=== PATIENT | female | born 1950 | race Caucasian/White ===

== ENCOUNTER 2020-04-21 08:22 | Emergency (ER) | payer MEDICARE ==
[~2020-04-21] VITALS: Ht 167.6 cm; Wt 142.3 kg
--- NOTE | 2020-04-21 08:50 | PHYS DOC ---
General Adult EDM: Chief Complaint: LACERATION/AVULSION HPI: HPI: 69-year-old female presents with a left great toe laceration. The patient caught her toe between the door and the door frame. She has a large curved tear in the great toe skin just proximal to the nail. The patient is on a blood thinner. It was bleeding quite a bit at home so she wrapped up and came to the emergency room. Patient has significantly decreased feeling in her lower extremity at baseline. She is not complaining of pain. She assumes it needs stitches and is not sure if it is broken. Review of Systems: Review of Systems: Constitutional: Denies fever or chills Eyes: Denies change in visual acuity HENT: Denies nasal congestion or sore throat Respiratory: Denies cough or shortness of breath Cardiovascular: Denies chest pain or edema GI: Denies abdominal pain, nausea, vomiting, bloody stools or diarrhea : Denies dysuria Musculoskeletal: Left great toe deformity, laceration Integument: Denies rash Neurologic: Denies headache, focal weakness or sensory changes Endocrine: Denies polyuria or polydipsia Lymphatic: Denies swollen glands Psychiatric: Denies depression or anxiety Heart Score: Risk Factors: Risk Factors: DM, Current or recent (<one month) smoker, HTN, HLP, family history of CAD, obesity. Risk Scores: Score 0 - 3: 2.5% MACE over next 6 weeks - Discharge Home Score 4 - 6: 20.3% MACE over next 6 weeks - Admit for Clinical Observation Score 7 - 10: 72.7% MACE over next 6 weeks - Early Invasive Strategies Allergies: Allergies: Allergies Coded Allergies Type Severity Reaction Last Updated Verified No Known Drug Allergies 09/08/15 No Physical Exam: PE: Constitutional: Well developed, well nourished, no acute distress, non-toxic appearance. [] HENT: Normocephalic, atraumatic, bilateral external ears normal, oropharynx moist, no oral exudates, nose normal. [] Eyes: PERRLA, EOMI, conjunctiva normal, no discharge. [] Neck: Normal range of motion, no tenderness, supple, no stridor. [] Cardiovascular: Heart rate regular rhythm, no murmur [] Lungs & Thorax: Bilateral breath sounds clear to auscultation [] Abdomen: Bowel sounds normal, soft, no tenderness, no masses, no pulsatile masses. [] Skin: Large curved laceration of the left great toe [] Back: No tenderness, no CVA tenderness. [] Extremities: Left great toe laceration with plantar deformity. [] Neurologic: Alert and oriented X 3, normal motor function, normal sensory function, no focal deficits noted. [] Psychologic: Affect normal, judgement normal, mood normal. [] EKG: EKG: [] Radiology/Procedures: Radiology/Procedures: [] Impressions: EXAM: LEFT FOOT 3 VIEWS. HISTORY: Trauma, open fracture COMPARISON: None. FINDINGS: Three views of the left foot are obtained. There is a transverse fracture of the proximal metaphysis of the first distal phalanx. There is inferior displacement by one half shaft width and distraction along the fracture line by 7 mm. There appears to be an overlying nailbed injury. There is surrounding bandage material but no clear soft tissue gas. There are changes of triple arthrodesis with a retrograde nail extending from the calcaneus through the tibia at the superior margin of the [id number]. The tibiotalar arthrodesis does not appear solidly fused. There are chronic healed fracture deformities of the distal tibia and fibula. Osteopenia is at least moderate. There appear to be a chronic fracture deformity at the base of the second proximal phalanx. 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 Soft tissue swelling and atherosclerotic calcifications are noted. IMPRESSION: 1. Inferiorly displaced and distracted, possibly open fracture of the first distal phalanx with a nailbed injury. 2. Tibiotalar arthrodesis does not appear solidly unified. Electronically signed by: Lemuel Castañeda MD (04/21/2020 9:22 AM) [id number] DICTATED AND SIGNED BY: TIM CASTAÑEDA MD DATE: 04/21/20921 CC: KAYDEN PEACOCK DO; DELFINA AGUILAR MD ~ Course & Med Decision Making: Course & Med Decision Making Pertinent Labs and Imaging studies reviewed. (See chart for details) The patient's x-ray is significant for a displaced and distracted fracture of the left great toe. This is an open fracture. I have contacted orthopedics for consult. I spoke with Dr. Batista and he has recommended the patient get cefazolin now for prophylaxis and then transfer the patient to [facility] for surgery later today. The patient is in agreement with this plan. The hospitalist, has accepted the patient for transfer. She will go by ambulance. [] Melinda Disclaimer: Melinda Disclaimer: This electronic medical record was generated, in whole or in part, using a voice recognition dictation system. Departure Departure: Impression: Primary Impression: Open fracture of left great toe Qualified Codes: S92.422B - Displaced fracture of distal phalanx of left great toe, initial encounter for open fracture Disposition: XFER SHT-TRM HOSP Condition: STABLE Referrals: DELFINA AGUILAR MD (PCP) Justification of Admission: Justification of Admission: Justification of Admission Dx: Yes Comments: Fracture requiring surgery KAYDEN PEACOCK DO Apr 21, 2020 08:50
--- NOTE | 2020-04-21 09:25 | RAD ---
EXAM: LEFT FOOT 3 VIEWS. HISTORY: Trauma, open fracture COMPARISON: None. FINDINGS: Three views of the left foot are obtained. There is a transverse fracture of the proximal metaphysis of the first distal phalanx. There is inferior displacement by one half shaft width and distraction along the fracture line by 7 mm. There appears to be an overlying nailbed injury. There is surrounding bandage material but no clear soft tissue gas. There are changes of triple arthrodesis with a retrograde nail extending from the calcaneus through the tibia at the superior margin of the [id number]. The tibiotalar arthrodesis does not appear solidly fused. There are chronic healed fracture deformities of the distal tibia and fibula. Osteopenia is at least moderate. There appear to be a chronic fracture deformity at the base of the second proximal phalanx. 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 Soft tissue swelling and atherosclerotic calcifications are noted. IMPRESSION: 1. Inferiorly displaced and distracted, possibly open fracture of the first distal phalanx with a nailbed injury. 2. Tibiotalar arthrodesis does not appear solidly unified. Electronically signed by: Lemuel Castañeda MD (04/21/2020 9:22 AM) [id number]
[2020-04-21] MEDS ORDERED: ceFAZolin SODIUM 1 GM VIAL ONE ×2 (10:16→10:18)
[2020-04-21] MEDS ORDERED: IV DEXTROSE 5% 50 ML ONE (10:16)
[2020-04-21 10:29] LABS: BASO # 0.1 x10^3/uL (0.0-0.2); BASO % 1 % (0-3); EOS # 0.1 x10^3/uL (0.0-0.7); EOS % 2 % (0-3); HEMATOCRIT 36.3 % (36.0-47.0); HEMOGLOBIN 11.6 g/dL (12.0-15.5); LYMPH # 1.1 x10^3/uL (1.0-4.8); LYMPH % 16 % (24-48); MEAN CORPUSCULAR HEMOGLOBIN 28 pg (25-35); MEAN CORPUSCULAR HGB CONC 32 g/dL (31-37); MEAN CORPUSCULAR VOLUME 88 fL (79-100); MONO # 0.5 x10^3/uL (0.0-1.1); MONO % 8 % (0-9); NEUT % 74 % (31-73); PLATELET COUNT 107 x10^3/uL (140-400); RED BLOOD COUNT 4.12 x10^6/uL (3.50-5.40); WHITE BLOOD COUNT 6.7 x10^3/uL (4.0-11.0)
[2020-04-21] MEDS ORDERED: ceFAZolin SODIUM 2 GM in IV DEXTROSE 5% 50 ML IV ONE (10:30)
[2020-04-21 10:40] LABS: CALCIUM 9.1 mg/dL (8.5-10.1); CREATININE 1.7 mg/dL (0.6-1.0); GFR 29.6; POTASSIUM 4.3 mmol/L (3.5-5.1)
[2020-04-21 10:46] LABS: ALBUMIN 3.1 g/dL (3.4-5.0); ALBUMIN/GLOBULIN RATIO 0.7 (1.0-1.7); TOTAL BILIRUBIN 0.4 mg/dL (0.2-1.0); TOTAL PROTEIN 7.4 g/dL (6.4-8.2)
[2020-04-21 11:09] VITALS: BP 162/99
== END 2020-04-21 11:12 | disposition short-term general hospital (02) ==
LOC: ER 08:22
DX: S92.422B Displaced fracture of distal phalanx of left great toe, initial encounter for open fracture (principal); W23.0XXA Caught, crushed, jammed, or pinched between moving objects, initial encounter; Y93.89 Activity, other specified; Y92.89 Other specified places as the place of occurrence of the external cause; Y99.8 Other external cause status
CPT/HCPCS: 36415; 73630; 80053; 85025; 85610; 85730; 96365; 99285; J0690

== ENCOUNTER → 2020-05-10 | Outpatient (CLI) | payer MEDICARE ==
[2020-04-21 11:09] VITALS: BP 162/99
--- NOTE | 2020-05-10 14:54 | RAD ---
EXAM: AP, oblique and lateral views left foot DATE: 05/10/2020 12:00 AM INDICATION: Reason: OPEN FRACTURE OF PHALANX OF LEFT GREAT TOE / Spl. Instructions: / History: COMPARISON: 04/21/2020 FINDINGS/ IMPRESSION: Percutaneous pin fixation of the great toe is seen without discrete bony bridging of the transverse distal phalanx fracture, in essentially anatomic alignment. Decreased bone mineral density. Atherosclerotic vascular calcifications are seen. Multifocal degenerative changes most prominent midfoot and hallux MTP joint. Changes of hindfoot arthrodesis are partially profiled. Electronically signed by: Ravi Sidhu MD (05/10/2020 2:51 PM) ANNIE
== END | disposition home or self-care (01) ==
LOC: RAD 11:48
PROVIDERS: ATTEND Physician Assistant
DX: S92.402B Displaced unspecified fracture of left great toe, initial encounter for open fracture (principal); M19.072 Primary osteoarthritis, left ankle and foot; X58.XXXA Exposure to other specified factors, initial encounter; Y93.89 Activity, other specified; Y92.89 Other specified places as the place of occurrence of the external cause; Y99.8 Other external cause status
CPT/HCPCS: 73630

== ENCOUNTER 2021-07-13 10:33 | Emergency (ER) | payer MEDICARE ==
[~2021-07-13] VITALS: Ht 167.6 cm; Wt 142.3 kg
[2021-07-13 10:40] VITALS: BP 133/73
--- NOTE | 2021-07-13 11:18 | PHYS DOC ---
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 The patient was sleepy and having a dream. She rolled out of bed onto her right elbow. Her daughter brought her in for evaluation because she is on Coumadin. She was concerned about a blood clot. There is moderate ecchymosis around the elbow area. Patient denies hitting her head. She has full mobility of her joints and has no other complaints. Review of Systems: Review of Systems: Constitutional: Denies fever or chills Eyes: Denies change in visual acuity HENT: Denies nasal congestion or sore throat Respiratory: Denies cough or shortness of breath Cardiovascular: Denies chest pain or edema GI: Denies abdominal pain, nausea, vomiting, bloody stools or diarrhea : Denies dysuria Musculoskeletal: Denies back pain or joint pain Integument: Ecchymosis right elbow Neurologic: Denies headache, focal weakness or sensory changes Endocrine: Denies polyuria or polydipsia Lymphatic: Denies swollen glands Psychiatric: Denies depression or anxiety Allergies: Allergies: Allergies Coded Allergies Type Severity Reaction Last Updated Verified ceftriaxone Allergy Severe hives 07/13/21 Yes Physical Exam: PE: Constitutional: Well developed, well nourished, no acute distress, non-toxic appearance. [] HENT: Normocephalic, atraumatic, bilateral external ears normal, oropharynx moist, no oral exudates, nose normal. [] Eyes: PERRLA, EOMI, conjunctiva normal, no discharge. [] Neck: Normal range of motion, no tenderness, supple, no stridor. [] Cardiovascular:Heart rate regular rhythm, no murmur [] Lungs & Thorax: Bilateral breath sounds clear to auscultation [] Abdomen: Bowel sounds normal, soft, no tenderness, no masses, no pulsatile masses. [] Skin: Moderate superficial ecchymosis of the right elbow region. [] Back: No tenderness, no CVA tenderness. [] Extremities: No tenderness, no cyanosis, no clubbing, ROM intact, no edema. [] Neurologic: Alert and oriented X 3, normal motor function, normal sensory function, no focal deficits noted. [] Psychologic: Affect normal, judgement normal, mood normal. [] Current Patient Data: Vital Signs: Vital Signs Date Time Temp Pulse Resp B/P (MAP) Pulse Ox O2 Delivery O2 Flow Rate FiO2 07/13/21 10:40 97.5 96 18 133/73 (93) 97 Room Air EKG: EKG: [] Radiology/Procedures: Radiology/Procedures: [] Heart Score: C/O Chest Pain: N/A Risk Factors: Risk Factors: DM, Current or recent (<one month) smoker, HTN, HLP, family history of CAD, obesity. Risk Scores: Score 0 - 3: 2.5% MACE over next 6 weeks - Discharge Home Score 4 - 6: 20.3% MACE over next 6 weeks - Admit for Clinical Observation Score 7 - 10: 72.7% MACE over next 6 weeks - Early Invasive Strategies Course & Med Decision Making: Course & Med Decision Making Pertinent Labs and Imaging studies reviewed. (See chart for details) The patient has full mobility of her elbow joint. She does not appear to have bleeding into the joint. The ecchymosis is superficial. She is stable for discharge at this time. [] Dragon Disclaimer: Dragon Disclaimer: This electronic medical record was generated, in whole or in part, using a voice recognition dictation system. Departure Departure: Impression: Primary Impression: Traumatic ecchymosis of right elbow Qualified Codes: S50.01XA - Contusion of right elbow, initial encounter Disposition: HOME / SELF CARE / HOMELESS Condition: STABLE Referrals: DELFINA AGUILAR MD (PCP) Patient Instructions: Adriana, [id number] KAYDEN PEACOCK DO Jul 13, 2021 11:18
== END 2021-07-13 11:36 | disposition home or self-care (01) ==
LOC: ER 10:33
DX: S50.01XA Contusion of right elbow, initial encounter (principal); I10 Essential (primary) hypertension; W06.XXXA Fall from bed, initial encounter; Y93.89 Activity, other specified; Y92.89 Other specified places as the place of occurrence of the external cause; Y99.8 Other external cause status
CPT/HCPCS: 99281

== ENCOUNTER 2022-01-20 20:01 | Emergency (ER) | payer MEDICARE ==
[~2022-01-20] VITALS: Ht 167.6 cm; Wt 142.0 kg
--- NOTE | 2022-01-20 20:24 | PHYS DOC ---
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 fib on warfarin, hypertension and diabetes who presents to the emergency department via EMS after being found down at home with last known well yesterday. Per EMS, family came over today just before coming to the emergency department and found her unresponsive sitting on the floor. Review of Systems Review of Systems Review of systems unable to be obtained due to acuity Allergies Allergies Allergies Coded Allergies Type Severity Reaction Last Updated Verified ceftriaxone Allergy Severe hives 07/13/21 Yes Physical Exam Physical Exam Constitutional: Obese, well nourished, in acute distress, unresponsive HENT: Normocephalic, atraumatic, oropharynx with significant amounts of saliva Eyes: Left pupil approximately 6 mm and unresponsive, right pupil 5 and unresponsive, no corneal reflex Neck: No obvious trauma Cardiovascular: Being paced secondary to bradycardia around 60 Lungs & Thorax: Agonal breathing with some rhonchi, respiratory distress Abdomen: Obese, soft abdomen Skin: Cool, dry, scattered bruising Back: No obvious trauma Extremities: Extremities cool and dry with some edema Neurologic: GCS of 3, no response to any stimuli, no gag reflex, no cough reflex, blood sugar greater than 200 EKG EKG [] Radiology/Procedures Radiology/Procedures [] Heart Score C/O Chest Pain: N/A Risk Factors: Risk Factors: DM, Current or recent (<one month) smoker, HTN, HLP, family history of CAD, obesity. Risk Scores: Risk Factors: DM, Current or recent (<one month) smoker, HTN, HLP, family history of CAD, obesity. Course & Med Decision Making Course & Med Decision Making Patient is a 71-year-old female who presents via EMS unresponsive, bradycardic and being paced and agonal breathing with normal blood sugar GCS of 3. Blood sugar greater than 200. Unresponsive to any stimuli. No corneal reflex. No gag reflex or cough reflex. Pupils unreactive. On arrival patient was placed in trauma bay bed, cardiac pads in place and transcutaneous pacing began, 2 tibial IO was placed and intubated with a 7.5 ETT, etomidate and rocuronium. Laboratory analysis obtained. CT scans that showed Large acute subarachnoid and subdural hemorrhages on the left with significant mass effect and midline shift to the right. Subfalcine and transtentorial herniation noted. After stabilization and some resuscitation family arrived. Confirmed patient was indeed on warfarin. Cardene ordered for blood pressure management. Mannitol ordered for increased ICP. No available Kcentra at this facility. FFP ordered. However, disposition was denied access to FFP, initially stating from lab personnel that this patient did not meet criteria for FFP and sent down to sheet with indications. These indications had nothing to do with life- threatening intracranial bleeds, recommending to give vitamin K and see what happens. This is wrong. Due to patient's critical illness, [facility] neurosurgery was contacted and accepted the patient. Unfortunately due to inability of ER attending physician to get FFP or Kcentra was unable to reverse patient's warfarin before leaving and unable to provide standard of care. This was very frustrating and will be bringing this to the attention of appropriate entities. [] Dragon Disclaimer Dragon Disclaimer This electronic medical record was generated, in whole or in part, using a voice recognition dictation system. Departure Departure: Impression: Primary Impression: Subdural hemorrhage Additional Impressions: Subarachnoid hemorrhage Transtentorial herniation Disposition: 02 SHORT TERM HOSPITAL Condition: GRAVE Referrals: DELFINA AGUILAR MD (PCP) Problem Qualifiers LUIS FERNANDO MD January 20, 2022 20:24
[2022-01-20 20:35] LABS: BASO % 0 % (0-3); EOS % 0 % (0-3); HEMATOCRIT 41.1 % (36.0-47.0); LYMPH # 0.8 x10^3/uL (1.0-4.8); LYMPH % 6 % (24-48); MEAN CORPUSCULAR HEMOGLOBIN 30 pg (25-35); MEAN CORPUSCULAR HGB CONC 32 g/dL (31-37); MEAN CORPUSCULAR VOLUME 94 fL (79-100); MONO % 7 % (0-9); NEUT % 87 % (31-73); PLATELET COUNT 97 x10^3/uL (140-400); RED BLOOD COUNT 4.38 x10^6/uL (3.50-5.40); RED CELL DISTRIBUTION WIDTH 15.6 % (11.5-14.5); WHITE BLOOD COUNT 13.9 x10^3/uL (4.0-11.0)
[2022-01-20 20:45] LABS: CALCIUM 9.3 mg/dL (8.5-10.1); CREATININE 1.6 mg/dL (0.6-1.0); GFR 31.6; POTASSIUM 4.9 mmol/L (3.5-5.1)
[2022-01-20 20:56] LABS: ALBUMIN 3.4 g/dL (3.4-5.0); ALBUMIN/GLOBULIN RATIO 0.9 (1.0-1.7); MAGNESIUM 2.2 mg/dL (1.8-2.4); TOTAL BILIRUBIN 0.5 mg/dL (0.2-1.0); TOTAL PROTEIN 7.2 g/dL (6.4-8.2)
[2022-01-20] MEDS ORDERED: IV NORMAL SALINE 250ML 250 ML ONE (21:18)
[2022-01-20] MEDS ORDERED: niCARdipine INJ. IV ONE (21:18)
--- NOTE | 2022-01-20 21:24 | RAD ---
Exam Date: 01/20/2022 8:[address] STROKE HEAD W/O, CT CERVICAL SPINE WO, CT CHEST_ABDOMEN_ AND PELVIS WITHOUT CONTRAST Indication: Reason: AMS / Spl. Instructions: / History: . One or more of the following dose reduction techniques were utilized: *Automated exposure control (AEC) *Adjustment of mA and/or kV according to patient size *Use of iterative reconstruction technique *CT scan done according to ALARA, or ALARA/IMAGE GENTLY EXAMINATION: CT OF THE HEAD WITHOUT CONTRAST INDICATION: Trauma, head injury, headache; TECHNIQUE: Noncontrast helical axial CT images of the head were obtained. FINDINGS: Suboptimal positioning limits evaluation. There is large subarachnoid acute hemorrhage throughout the left cerebral hemisphere. There is large acute subdural hemorrhage along the left falx and left tentorium measuring up to 15 mm in thickness on coronal imaging. There is midline shift to the right up to 20 mm with marked mass effect on the l eft lateral ventricle. Subfalcine herniation is noted. The basilar cisterns are effaced consistent with transtentorial herniation. Volume loss and microvascular disease are noted. No lesion of the skull base or the calvarium is see n. The visualized paranasal sinuses, mastoid air cells, and orbits are normal in appearance. IMPRESSION: Large acute subarachnoid and subdural hemorrhages on the left with significant mass effect and midlin e shift to the right. Subfalcine and transtentorial herniation noted. Volume loss and microvascular disease. Findings discussed with LUIS FERNANDO MD at 01/20/2022 8:53 PM. Images were made available for radio logist interpretation at 8:50 PM on 01/20/2022. FOR INTERNAL CODING PURPOSES Critical result: RESULT CODE: (C) EXAMINATION: CT OF THE CERVICAL SPINE WITHOUT CONTRAST Clinical Indication: Cervical spine pain after trauma Technique: Thin cut helical axial CT images through the cervical spine were obtained without contrast on a multi-detector CT scanner. Source data was then reconstructed into sagittal and coronal planes. Findings: Alignment is maintained without spondylolisthesis. Vertebral body heights are maintained without acute fracture. Moderate multilevel degenerative change s are noted. No significant prevertebral soft tissue swelling is demonstrated. No severe osseous cent ral canal stenosis is seen. Impression: No evidence of acute cervical spine fracture or subluxation. EXAMINATION: CT CHEST without INTRAVENOUS CONTRAST CLINICAL INDICATION: Chest pain after trauma TECHNIQUE: Chest CT was performed without intravenous contrast. FINDINGS: Endotracheal tube terminates above the john. Mildly enlarged mediastinal and hilar lymph nodes are nonspecific. Bibasilar subsegmental atelectasis is noted. The central airways are patent. There is no focal consolidation, pleural effusion or pneumothorax. The visualized thyroid gland is within normal limits. Coronary artery calcifications are noted. The heart is enlarged without pericardial effusion. Aorta is normal in caliber with atherosclerotic joanie cifications. Degenerative changes are seen in the spine. No acute fracture. IMPRESSION: Mildly enlarged mediastinal and hilar lymph nodes are nonspecific. Mild bibasilar subsegmental atele ctasis. EXAMINATION: CT ABDOMEN AND PELVIS WITHOUT IV CONTRAST CLINICAL INDICATION: Abdominal and pelvic pain after trauma; TECHNIQUE: CT abdomen pelvis was performed without intravenous contrast. FINDINGS: Nasogastric tube terminates in the gastric antrum. Bilateral nonobstructing renal calculi are seen m easuring up to 10 mm on the right and 9 mm on the left. No hydronephrosis on either side. Kidneys a ppear slightly atrophic bilaterally. The liver, gallbladder, spleen, pancreas, adrenal glands and kidneys are otherwise normal. Urinary bladder is normal in appearance. There is no bowel obstruction or inflammation. The appendi x is normal. Mild atherosclerotic calcifications are seen. No lymphadenopathy or ascites is seen. Degenerative changes are seen in the spine. No acute fracture. IMPRESSION: No evidence of acute intra-abdominal pathology. Electronically signed by: Ronald Rodney MD (01/20/2022 9:21 PM) [id number]
[2022-01-20] MEDS ORDERED: MANNITOL 25% 12.5 G/50 ML VIAL. IV ONE (21:30)
[2022-01-20 21:56] VITALS: BP 208/90
[2022-01-20] MEDS ORDERED: PHYTONADIONE (VIT K1) IV 10 MG in IV NORMAL SALINE 50ML 50 ML IV ONE (22:00)
[2022-01-20 22:19] LABS: BGAS PH 7.52 (7.35-7.45)
[2022-01-21] MEDS ORDERED: ETOMIDATE 40 MG/20 ML VIAL. ONE (01:00)
[2022-01-21] MEDS ORDERED: ROCURONIUM 50 MG/5 ML VIAL. ONE (01:00)
== END 2022-01-20 22:14 | disposition short-term general hospital (02) ==
LOC: ER 20:01
DX: S06.5X9A Traumatic subdural hemorrhage with loss of consciousness of unspecified duration, initial encounter (principal); S06.6X9A Traumatic subarachnoid hemorrhage with loss of consciousness of unspecified duration, initial encounter; I12.9 Hypertensive chronic kidney disease with stage 1 through stage 4 chronic kidney disease, or unspecified chronic kidney disease; N18.9 Chronic kidney disease, unspecified; I48.91 Unspecified atrial fibrillation; E11.22 Type 2 diabetes mellitus with diabetic chronic kidney disease; Z88.1 Allergy status to other antibiotic agents; W18.39XA Other fall on same level, initial encounter; Y93.89 Activity, other specified; Y92.89 Other specified places as the place of occurrence of the external cause; Y99.8 Other external cause status
CPT/HCPCS: 31500; 36415; 36600; 36680; 51702; 70450; 71250; 72125; 74176; 80053; 82803; 83690; 83735; 83880; 84484; 85025; 85610; 85730; 96365; 96375; 99285; J2150; J7050; 94002